=== PATIENT | female | born 1950 | race Caucasian/White ===

== ENCOUNTER → 2016-09-22 16:25 | Outpatient (CLI) | payer BC | END | disposition home or self-care (01) | LOC: D.MAMMO 10:30 | DX: R92.8 Other abnormal and inconclusive findings on diagnostic imaging of breast (principal) ==

== ENCOUNTER 2019-04-24 08:00 | Outpatient (CLI) | payer BC | END 2019-04-24 23:59 | disposition home or self-care (01) | LOC: D.MAMMO 08:00 | PROVIDERS: ATTEND Family Medicine | DX: Z12.31 Encounter for screening mammogram for malignant neoplasm of breast (principal) ==

== ENCOUNTER → 2020-02-21 21:16 | Outpatient (CLI) | payer BC | END | disposition home or self-care (01) | LOC: D.LABREF 21:16 | PROVIDERS: ATTEND Orthopaedic Surgery | DX: M17.0 Bilateral primary osteoarthritis of knee (principal) ==

== ENCOUNTER 2020-03-01 16:33 | Inpatient (IN) | payer BC, MEDICARE ==
[~2020-03-01] VITALS: Ht 162.6 cm; Wt 90.9 kg
[2020-03-13] MEDS ORDERED: WELCHOL625 MG PO (11:21)
[2020-03-13] MEDS ORDERED: MOBIC7.5 MG PO (11:21)
[2020-03-13] MEDS ORDERED: LISINOPRIL5 MG PO (11:22)
[2020-03-13] MEDS ORDERED: FUROSEMIDE20 MG PO (11:22)
[2020-03-13] MEDS ORDERED: MYSOLINE 50 MG50 MG PO (11:22)
[2020-03-13] MEDS ORDERED: VITAMIN B-12250 MC3 PO (11:23)
[2020-03-13] MEDS ORDERED: CENTRUM SILVER1 EAC3 PO (11:23)
[2020-03-13] MEDS ORDERED: ASCORBIC ACID500 MG PO (11:23)
[2020-03-13] MEDS ORDERED: COGNIUM PO (11:24)
[2020-03-13 11:56] LABS: APTT 29.2 SECONDS (22.8-39.4); INR 0.92 (0.85-1.17); PROTIME 12.4 SECONDS (11.6-15.0)
[2020-03-13 12:16] LABS: BILIRUBIN NEGATIVE (NEGATIVE); GLUCOSE NEGATIVE (NEGATIVE); KETONE NEGATIVE (NEGATIVE); NITRITE NEGATIVE (NEGATIVE); RED CELLS - URINE RARE /hpf (0-5); SPECIFIC GRAVITY 1.025 (1.005-1.020); UROBILINOGEN NORMAL (NORMAL); WHITE CELLS - URINE 0-5 /hpf (NEGATIVE)
[2020-03-13 12:17] LABS: BACTERIA FEW /hpf (NEGATIVE); EPITHELIAL CELLS 0-5 /hpf (0-5)
[2020-03-13 12:27] LABS: BASOPHILS 0.3 % (0-2); EOSINOPHILS 2.3 % (0-7); HEMOGLOBIN 12.7 g/dL (12-16); IMMATURE GRANULOCYTES 0.2 % (0-5); LYMPHOCYTES 38.5 % (15-50); MCH 31.3 pg (26.0-34.0); MCHC 33.4 g/dL (31.0-37.0); MCV 93.6 fL (80.0-100.0); MEAN PLATELET VOLUME 10.5 fL (7.4-10.4); MONOCYTES 8.6 % (2-11); NEUTROPHILS 50.1 % (40-80); PLATELET COUNT 237 10x3/uL (130-400); RBC 4.06 10x6/uL (4.00-5.40); RDW 13.1 % (11.5-14.5); WBC 5.7 10x3/uL (4.8-10.8)
[2020-03-13 13:03] LABS: CALCIUM 9.2 mg/dL (8.5-10.1); CARBON DIOXIDE 24.2 mmol/L (21.0-32.0)
[2020-03-13 13:44] LABS: ANION GAP 12.4 mmol/L (8-16); POTASSIUM - SERUM 4.6 mmol/L (3.5-5.1)
[2020-03-19] VITALS (7 sets, daily range): BP systolic 110–151; BP diastolic 52–76; Ht 162.6 cm; Wt 90.9 kg
[2020-03-19] MEDS ORDERED: CIPRO500 MG PO (12:58)
--- NOTE | 2020-03-19 14:59 | NUR ---
PLASMA BLADE AND AQUAMANIS USED. PLASMA BLADE SETTING 6/8. AQUAMANIS SETTING 170. CAUTERY PAD PLACED ON RIGHT THIGH. LOT#[id number] EXP. 06/07/2021
--- NOTE | 2020-03-19 14:59 | NUR ---
1445-MONITORS ESTABLISHED. SEDATION PER ANESTHESIA. BLOCK TO LEFT LEG PER ANESTHESIA.
[2020-03-20] VITALS: BP 109/58
[2020-03-20 04:30] VITALS: BP 93/47
[2020-03-20 06:28] LABS: HEMOGLOBIN 10.9 g/dL (12-16); MCH 31.3 pg (26.0-34.0); MCV 94.8 fL (80.0-100.0); MEAN PLATELET VOLUME 10.8 fL (7.4-10.4); RBC 3.48 10x6/uL (4.00-5.40); RDW 13.5 % (11.5-14.5); WBC 8.7 10x3/uL (4.8-10.8)
--- NOTE | 2020-03-20 06:29 | OP ---
PATIENT NAME: ESTER REARDON MEDICAL RECORD: [id number] :52 LOCATION:D. D.1211 ADMISSION DATE:03/19/20 SURGEON: ANTHONY NDIAYE DO DATE OF OPERATION: 03/19/2020 PROCEDURE PERFORMED: Left total knee arthroplasty. PREOPERATIVE DIAGNOSIS: Left knee osteoarthritis. POSTOPERATIVE DIAGNOSIS: Left knee osteoarthritis. INDICATIONS: Ms. Reardon is a 69-year-old female who has had continuing left and right knee pain. She has had x-rays in all manner of nonoperative treatment. She had an MRI in the left knee, which showed severe chondromalacia and full thickness, cartilage loss on the medial side of the knee and she came to see me. I informed her that there is not a whole lot we can do other than do a total knee since she already exhausted all the other options and then nothing is shown to regrow cartilage just yet. She was aware of that and aware of the risk of this including infection, bleeding, damage to nerves and vessels, need for further surgery, continued pain, arthrofibrosis, blood clots, even , failure of implants, and she signed a consent. SURGEON: Anthony Ndiaye DO DESCRIPTION OF THE PROCEDURE: The patient was taken to the operative suite, laid in supine position, given general anesthetic, and LMA was placed. She was given 2 grams of Ancef preoperatively and 80 mg of gentamicin. She was also given a gram of TXA. At that point, the left lower extremity was prepped and draped in sterile fashion. Timeout was performed. Everyone was agreeance with the correct site, side, the patient, and procedure and began to marking out the incision on the anterior knee and covered in Ioban and took a 10 blade scalpel and a careful dissection down to the capsule. Used a fresh 10 blade to medial parapatellar approach, everted the patella, took part of the fat pad out and milled down patella. I then took out the ACL and put a drill into the femoral canal and used the intramedullary guide for distal femur cut. Once the distal femur was cut, the proximal tibia was cut, and extramedullary guide and removed that, cut as well as menisci. Knee was brought to extension and then a lamina distillery manager was used to remove any further menisci over the left and coagulated any bleeding with the Aquamantys. We then put the 10 extension block and it fit well. We removed the pins and flexed the knee, upsized the femur to be a 65, 4-in-1 cutting block was put on. The veronica wing was used to ensure there was no notching. We then cut the distal femur through the 4-in-1 cutting block and removed the excess bone. I then put on the 65 trial and floated in the tibial tray and ranged it and marked the rotation. I then drilled the patellar holes and the lug holes in the femur, removed the trial, exposed the tibia and 71 tray fit very well. It was reamed and punched and extra holes put in the tibia for the cement. Cement was mixed. The area was irrigated and then dried out and then cement was put in the tibia and on the implant and impacted into place. Excess cement was removed. Then, I impacted the femur on and put a 12 poly in between and brought knee into extension and put the patella on and put after irrigating curetting out the holes and I then put cement in the holes and on the patella and put the squeezer on and then hold it into place, removed excess cement from it and the tibia. I then put in 10% povidone iodine and 500 mL of normal saline and let it sit for 3 minutes and irrigated the knee out with over a liter of normal saline. We then trialed the 12 and 14, the 14 fit best and OPERATIVE REPORT [id number] ESTER REARDON put in a 14-E poly and locked it into place. It ranged very well, had good range of motion and good stability in extension and flexion and then put in the Renate and vancomycin and tobramycin powder and closed the capsule with #1 pop-offs in zzskab-my-vbmjh fashion, done by myself and Ankush Balbuena, certified teacher assistant, and Melvin Win, certified teacher assistant. Wandy and Carrington closed the skin with 2-0 Vicryl in inverted interrupted fashion, 4-0 Monocryl and a ZipLine placed on the skin and she was then dressed with Adaptic, 4 x 4s, ABD, Webril, Gary wrap, taken to recovery in stable condition. Blood loss was approximately 200 mL. COMPLICATIONS: None. TRANSINT:[id number] Voice Confirmation ID: [id number] DOCUMENT ID: [id number] ANTHONY NDIAYE, DO at 0629 CC: [id number] DICTATION DATE: 03/19/20 1636 PRINCIPAL SCIENTIST: 03/20/20 0159 ADM IN [facility] [address] [place] [address]
[2020-03-20 07:57] VITALS: BP 91/46
--- NOTE | 2020-03-20 08:00 | NUR ---
PATIENT IN BED WITH IV INTACT. NO COMPLAINTS OR SIGNS OF DISTRESS. CALL LIGHT WITHIN REACH.
[2020-03-20 12:17] VITALS: BP 91/42
[2020-03-20 16:00] VITALS: BP 99/43
--- NOTE | 2020-03-20 17:15 | NUR ---
PATIENT FRIEND STATED THAT PATIENT IS WANTING PAIN MEDS AND THAT SHE HAD WANTED IT EARLIER WHEN THE DOCTOR WAS IN AND THE DOCTOR SAID TO GO AHEAD AND GET SOME AND SHE STILL HAS NOT RECIEVED ANY. EXPLAINED THAT I WAS NOT AWARE PATIENT WANTED PAIN MEDS BECAUSE I WAS NOT TOLD AND THAT THE PATIENT HAS BEEN SLEEPING WHILE SHE WAS GONE. SHE ALSO STATED THAT THE PATIENT SCD WAS ON BUT THE MACHINE WAS NOT TURNED ON BC DAVID HAD NOT TURNED IT ON AFTER PLACING THE PATIENTS NBA HOSE ON. EXPLAINED THAT I WAS NOT AWARE THE MACHINE WAS NOT ON BC THE PATIENT DID NOT PUSH HER CALL LIGHT AND TELL ME IT WASNT ON AND WHEN I WENT INTO HER ROOM LAST AT 1530 PATIENT WAS SLEEPING. SHE STATED PATIENT HAS NOT BEEN TO THE BR SINCE SHE WAS GONE AND THAT SHE DIDNT HAVE HER CPM ON. EXPLAINED TO FRIEND AGAIN THAT PATIENT HAS BEEN SLEEPING AND THAT SHE NEVER CALLED TO GO TO THE BR AND THAT SHE GETS HER CPM ON AFTER SUPPER. SHE STATED WHEN IS SUPPER SHE DOESNT HAVE A TRAY. WENT IN PATIENTS ROOM. TRAY AT . PATIENT IN BED STATED SHE IS HURTING. EXPLAINED I WOULD BRING HER A PAIN MED AT THIS TIME. VERBALIZED UNDERSTANDING. CALL LIGHT WITHIN REACH.
--- NOTE | 2020-03-20 17:30 | NUR ---
ASSISTED PATIENT TO BR AND THEN WALKED IN [place] TO NURSE'S STATION AND BACK. ASSISTED PATIENT BACK TO BED AND PLACED SCD ON RLE. ON AND WORKING. CPM PLACED ON LLE. NBA HOSE ON. IV INTACT. SALINE LOCKED. FRIEND AT BEDSIDE. CALL LIGHT WITHIN REACH. WILL CONTINUE TO MONITOR.
--- NOTE | 2020-03-20 18:33 | NUR ---
PATIENT STATED HER CPM IS HURTING THE BACK OF HER KNEE AND THIGH FROM STRETCHING AND PULLING. EXPLAINED TO PATIENT THAT SHE HAS HAD HER PAIN MED AND PLACED ICE PACKS ON BOTH AREAS. STATED TO TRY TO LEAVE IT ON LONG SHE COULD. VERBALIZED UNDERSTANDING. CALL LIGHT WITHIN REACH.
[2020-03-20 20:00] VITALS: BP 118/43
--- NOTE | 2020-03-20 20:00 | NUR ---
ALERT RESTING IN BED CPM IN USE, DENIES PAIN OR NEEDS AT THIS TIME, CALL LIGHT IN REACH
[2020-03-21 04:00] VITALS: BP 138/58
[2020-03-21 05:46] LABS: HEMATOCRIT 32.6 % (36.0-48.0); HEMOGLOBIN 10.6 g/dL (12-16); MCH 30.9 pg (26.0-34.0); MCHC 32.5 g/dL (31.0-37.0); MEAN PLATELET VOLUME 10.3 fL (7.4-10.4); RBC 3.43 10x6/uL (4.00-5.40); RDW 13.6 % (11.5-14.5); WBC 7.6 10x3/uL (4.8-10.8)
[2020-03-21 07:25] VITALS: BP 151/60
--- NOTE | 2020-03-21 10:00 | NUR ---
PATIENT UP TO CHAIR PER PT. WANTS TO GO BACK TO BED. EXPLAINED SHE NEEDS TO STAY UP FOR AT LEAST AN HOUR. VERBALIZED UNDERSTANDING. FRIEND AT BEDSIDE. CALL LIGHT WITHIN REACH.
--- NOTE | 2020-03-21 11:06 | NUR ---
PATIENT BATH AT THIS TIME. ASSISTED BY SNT. UP TO BR AND TO SINK FOR ORAL CARE. WANTS TO GO BACK TO BED. EXPLAINED TO STAY UP FOR LONGER BY ATTENDANCE SECRETARY. VERBALIZED UNDERSTANDING. FRIEND AT BEDSIDE. CALL LIGHT WITHIN REACH.
--- NOTE | 2020-03-21 11:07 | NUR ---
PATIENT BACK TO BED AT THIS TIME. DOES NOT WANT TO STAY UP. STATES SHE IS IN TOO MUCH PAIN. FRIEND AT BEDSIDE. CALL LIGHT WITHIN REACH. PT. TEDS AND SCDS ON AND WORKING.
[2020-03-21 12:05] VITALS: BP 140/45
--- NOTE | 2020-03-21 13:07 | MORECARE ---
CASE MANAGEMENT DISCHARGE SUMMARY PATIENT: ESTER REARDON UNIT: [id number] ADM DATE: 03/19/20 AGE: 69 : 51 SEX: F ROOM/BED: D.1211 AUTHOR: ZULMA WILSON PHYSICIAN: REFERRING PHYSICIAN: LUIZ NDIAYE DO DATE OF SERVICE: 03/21/20 Discharge Plan Patient Name: ESTER REARDON [facility] [facility] 1950 Planned Disposition: Home or Self Care Anticipated Discharge Date: Discharge Date: Expected LOS: Initial Reviewer: [email or web address] Initial Review Date: 03/19/2020 Generated: 03/21/20 2:06 pm DCPIA - Discharge Planning Initial Assessment Updated by [email or web address]: Courtney Horowitz on 03/21/20 1:05 pm * Is the patient Alert and Oriented? Yes * How many steps to enter\exit or inside your home? * PCP MARILY * Pharmacy [facility] [address] * Preadmission Environment Home Alone * ADLs Independent * Equipment Elevated Toliet Seat Rolling Walker Walker * Other Equipment CPM ICE MACHINE * List name and contact numbers for known caregivers / representatives who currently or will assist patient after discharge: ELYSE [place] [phone] * Verbal permission to speak to the caregivers and representatives has been obtained from the patient. N/A * Community resources currently utilized None * Additional services required to return to the preadmission environment? Yes * Can the patient safely return to the preadmission environment? Yes * Has this patient been hospitalized within the prior 30 days at any hospital? No Patient Name: ESTER REARDON Page [phone] at 1307 All edits/amendments must be made on the electronic document DICTATION DATE: 03/21/20 1307 GERM DRIER: GABY 03/21/20 1307 RPT#: [id number] DC DATE: STATUS: ADM IN [facility] [address] [place] [address] END OF REPORT
--- NOTE | 2020-03-21 13:14 | MORECARE ---
CASE MANAGEMENT DISCHARGE SUMMARY PATIENT: ESTER REARDON UNIT: [id number] ADM DATE: 03/19/20 AGE: 69 : 51 SEX: F ROOM/BED: D.1211 AUTHOR: KATIEDOC PHYSICIAN: REFERRING PHYSICIAN: LUIZ NDIAYE DO DATE OF SERVICE: 03/21/20 Discharge Plan Patient Name: ESTER REARDON Facility: [facility]:[place] : 1950 Planned Disposition: Home or Self Care Anticipated Discharge Date: Discharge Date: Expected LOS: Initial Reviewer: [email or web address] Initial Review Date: 03/19/2020 Generated: 03/21/20 2:14 pm Comments DCP- Discharge Planning Updated by [email or web address]: Courtney Horowitz on 03/21/20 12:[address] Patient Name: ESTER REARDON Admission Status: Elective Accout number: [id number] Admission Date: 03-19-2020 : 1950 Admission Diagnosis: Attending: LUIZ NDIAYE Current LOS: 2 Anticipated DC Date: Planned Disposition: Home or Self Care Primary Insurance: [employer] Discharge Planning Comments: late entry: 03/21/20 @ 0720 CM met with patient to complete initial dc planning assessment. CM educated patient on the CM role and verbal consent given by patient to complete assessment. Patient lives at home alone where she is independent with her care. At discharge patient plans to return home and feels this is a safe discharge. CM discussed availability of home health, rehab services, and medical equipment. Patient stated that she has friends and family who will help her. Patient has an ice machine, CPM, walker and a handicap commode. She plans on going to [facility] OP PT, I have made her appointment for WednesdayMarch 25 @ 1:45. The patient will get a copy of the order in her discharge packet. IMM served and explained. Patient denied known discharge needs at this time. CM will continue to follow and will assist as needed with dc plans/needs. Sales Incentive Analyst: Courtney Horowitz DCPIA - Discharge Planning Initial Assessment Updated by [email or web address]: Courtney Horowitz on 03/21/20 1:05 pm * Is the patient Alert and Oriented? Yes * How many steps to enter\exit or inside your home? * PCP MARILY * Pharmacy [facility] [address] * Preadmission Environment Home Alone * ADLs Independent * Equipment Elevated Tol[place] Seat Rolling Walker Walker * Other Equipment CPM ICE MACHINE * List name and contact numbers for known caregivers / representatives who currently or will assist patient after discharge: ELYSE SAWYER [phone] * Verbal permission to speak to the caregivers and representatives has been obtained from the patient. N/A * Community resources currently utilized None * Additional services required to return to the preadmission environment? Yes * Can the patient safely return to the preadmission environment? Yes * Has this patient been hospitalized within the prior 30 days at any hospital? No Coverage Notice Reviewer: [email or web address] Milena Horowitz Notice Issued Date-Time: 03/21/2020 7:20 Notice Type: IM Discharge Notice Notice Delivered To: Patient Relationship to Patient: Detention Attendant Name: Delivery Method: HAND - Hand Delivered Mary Jane Days: Prior Verbal Notification: Recipient Understood Notice: Yes Recipient Signature: Yes Med Rec Note Co-signed by Attending: Coverage Notice Comment: imm served and explained Last DP export: 03/21/20 12:07 pm Patient Name: ESTER REARDON Page [phone] at 1314 All edits/amendments must be made on the electronic document DICTATION DATE: 03/21/20 1314 STUDY ABROAD ADVISOR: GABY 03/21/20 1314 RPT#: [id number] DC DATE: STATUS: ADM IN [facility] [address] [place] [address] END OF REPORT
[2020-03-21 16:14] VITALS: BP 139/53
--- NOTE | 2020-03-21 17:00 | NUR ---
PATIENT AMBULATED IN [place] WITH RN TO FIRST SET OF DOUBLE DOORS FROM 1211. PATIENT HAD SMALL AMOUNT OF TROUBLE BECAUSE SHE IS TIRED AND WEAK. ASSISTED BACK TO ROOM AND BACK TO BED. DID NOT WANT TO SIT IN CHAIR NO LONGER. SAT IN CHAIR FOR AT LEAST 30 MIN. FRIEND AT BEDSIDE. CALL LIGHT WITHIN REACH.
--- NOTE | 2020-03-21 19:51 | NUR ---
ALERT RESTING IN BED, CPM IN USE, REPORTS PAIN BETTER TODAY DENIES PAIN OR NEEDS AT THIS TIME, SEE SHIFT ASSESSMENT, CALL LIGHT IN REACH
--- NOTE | 2020-03-21 19:52 | NUR ---
ALERT SITTING UP IN BED DENIES PAIN OR NEEDS AT THIS TIME, SEE SHIFT ASSESSMENT, CALL LIGHT IN REACH, AT BEDSIDE
[2020-03-21 20:30] VITALS: BP 148/62
[2020-03-22 05:38] VITALS: BP 142/64
[2020-03-22 06:03] LABS: BASOPHILS 0.1 % (0-2); EOSINOPHILS 3.2 % (0-7); HEMATOCRIT 32.4 % (36.0-48.0); HEMOGLOBIN 10.9 g/dL (12-16); IMMATURE GRANULOCYTES 0.1 % (0-5); LYMPHOCYTES 26.6 % (15-50); MCH 31.6 pg (26.0-34.0); MCHC 33.6 g/dL (31.0-37.0); MCV 93.9 fL (80.0-100.0); MEAN PLATELET VOLUME 10.4 fL (7.4-10.4); MONOCYTES 15.9 % (2-11); NEUTROPHILS 54.1 % (40-80); PLATELET COUNT 192 10x3/uL (130-400); RBC 3.45 10x6/uL (4.00-5.40); RDW 13.4 % (11.5-14.5); WBC 7.1 10x3/uL (4.8-10.8)
[2020-03-22 06:04] LABS: ANION GAP 11.2 mmol/L (8-16); BILIRUBIN - TOTAL 1.01 mg/dL (0.2-1.3); CALCIUM 8.6 mg/dL (8.5-10.1); CARBON DIOXIDE 25.8 mmol/L (21.0-32.0); CREATININE - SERUM 1.1 mg/dL (0.6-1.3); PROTEIN - SERUM 6.6 g/dL (6.4-8.2)
[2020-03-22 07:46] VITALS: BP 137/52
[2020-03-22] MEDS ORDERED: ELIQUIS2.5 MG PO (08:10)
[2020-03-22] MEDS ORDERED: oxyCODONE IR PO (08:11)
--- NOTE | 2020-03-22 10:30 | NUR ---
PATIENT DRESSING CHANGED AT THIS TIME. INCISION CLEAN AND DRY WITH NO REDNESS OR DRAINAGE. ZIP LINE INTACT. MEPILEX APPLIED AND WRAPPED WITH SAIRA. PATIENT TOLERATED WITH NO PAIN. CALL LIGHT WITHIN REACH.
--- NOTE | 2020-03-22 13:13 | MORECARE ---
CASE MANAGEMENT DISCHARGE SUMMARY PATIENT: ESTER REARDON UNIT: [id number] ADM DATE: 03/19/20 AGE: 69 : 51 SEX: F ROOM/BED: D.1211 AUTHOR: ZULMA WILSON PHYSICIAN: REFERRING PHYSICIAN: LUIZ NDIAYE DO DATE OF SERVICE: 03/22/20 Discharge Plan Patient Name: ESTER REARDON Facility: [facility]:[place] : 1950 Planned Disposition: Home or Self Care Anticipated Discharge Date: Discharge Date: Expected LOS: Initial Reviewer: [email or web address] Initial Review Date: 03/19/2020 Generated: 03/22/20 2:12 pm Comments DCP- Discharge Planning Updated by [email or web address]: Courtney Horowitz on 03/22/20 12:[address] SPOKE WITH PATIENT & FRIEND AT LENGTH ABOUT GOING HOME, THEY ARE WORRIED THAT SHE WILL NOT BE ABLE TO MAKE IT. PT AND MD STATES SHE IS SAFE FOR DC WITH HOME HEALTH. SHE WOULD BE INTRESTED TO GO TO INPATIENT REHAB I HAVE PUT A REFERRAL IN FOR INPATIENT REHAB DCP- Discharge Planning Updated by [email or web address]: Courtney Horowitz on 03/21/20 12:[address] Patient Name: ESTER REARDON Admission Status: Elective Accout number: [id number] Admission Date: 03-19-2020 : 1950 Admission Diagnosis: Attending: LUIZ NDIAYE Current LOS: 2 Anticipated DC Date: Planned Disposition: Home or Self Care Primary Insurance: [employer] [facility] Discharge Planning Comments: late entry: 03/21/20 @ 07 CM met with patient to complete initial dc planning assessment. CM educated patient on the CM role and verbal consent given by patient to complete assessment. Patient lives at home alone where she is independent with her care. At discharge patient plans to return home and feels this is a safe discharge. CM discussed availability of home health, rehab services, and medical equipment. Patient stated that she has friends and family who will help her. Patient has an ice machine, CPM, walker and a handicap commode. She plans on going to [facility] OP PT, I have made her appointment for WednesdayMarch 25 @ 1:45. The patient will get a copy of the order in her discharge packet. IMM served and explained. Patient denied known discharge needs at this time. CM will continue to follow and will assist as needed with dc plans/needs. Industrial Sweeper Cleaner: Courtney Horowitz DCPIA - Discharge Planning Initial Assessment Updated by [id number]: Courtney Horowitz on 03/21/20 1:05 pm * Is the patient Alert and Oriented? Yes * How many steps to enter\exit or inside your home? * PCP [facility] * Pharmacy [facility] [address] * Preadmission Environment Home Alone * ADLs Independent * Equipment Elevated Tol[place] Seat Rolling Walker Walker * Other Equipment CPM ICE MACHINE * List name and contact numbers for known caregivers / representatives who currently or will assist patient after discharge: ELYSE SAWYER [phone] * Verbal permission to speak to the caregivers and representatives has been obtained from the patient. N/A * Community resources currently utilized None * Additional services required to return to the preadmission environment? Yes * Can the patient safely return to the preadmission environment? Yes * Has this patient been hospitalized within the prior 30 days at any hospital? No Coverage Notice Reviewer: [id number] - Courtney Horowitz Notice Issued Date-Time: 03/21/2020 7:20 Notice Type: IM Discharge Notice Notice Delivered To: Patient Relationship to Patient: Assistant Prosecuting Attorney Name: Delivery Method: HAND - Hand Delivered Mary Jane Days: Prior Verbal Notification: Recipient Understood Notice: Yes Recipient Signature: Yes Med Rec Note Co-signed by Attending: Coverage Notice Comment: imm served and explained Last DP export: 03/21/20 12:14 pm Patient Name: ESTER REARDON Page [phone] at 1313 All edits/amendments must be made on the electronic document DICTATION DATE: 03/22/20 1312 PROPERTY MANAGEMENT INTERN: GABY 03/22/20 1312 RPT#: [id number] DC DATE: STATUS: ADM IN [facility] [address] [place] [address] END OF REPORT
--- NOTE | 2020-03-22 14:05 | MORECARE ---
CASE MANAGEMENT DISCHARGE SUMMARY PATIENT: ESTER REARDON UNIT: [id number] ADM DATE: 03/19/20 AGE: 69 : 51 SEX: F ROOM/BED: D.1211 AUTHOR: ZULMA WILSON PHYSICIAN: REFERRING PHYSICIAN: LUIZ NDIAYE DO DATE OF SERVICE: 03/22/20 Discharge Plan Patient Name: ESTER REARDON Facility: [facility]:[place] : 1950 Planned Disposition: Home or Self Care Anticipated Discharge Date: Discharge Date: Expected LOS: Initial Reviewer: [email or web address] Initial Review Date: 03/19/2020 Generated: 03/22/20 3:04 pm Comments DCP- Discharge Planning Updated by [email or web address]: Courtney Horowitz on 03/22/20 12:[address] SPOKE WITH PATIENT & FRIEND AT LENGTH ABOUT GOING HOME, THEY ARE WORRIED THAT SHE WILL NOT BE ABLE TO MAKE IT. PT AND MD STATES SHE IS SAFE FOR DC WITH HOME HEALTH. SHE WOULD BE INTRESTED TO GO TO INPATIENT REHAB I HAVE PUT A REFERRAL IN FOR INPATIENT REHAB DCP- Discharge Planning Updated by [email or web address]: Courtney Horowitz on 03/21/20 12:[address] Patient Name: ESTER REARDON Admission Status: Elective Accout number: [id number] Admission Date: 03-19-2020 : 1950 Admission Diagnosis: Attending: LUIZ NDIAYE Current LOS: 2 Anticipated DC Date: Planned Disposition: Home or Self Care Primary Insurance: [facility] Discharge Planning Comments: late entry: 03/21/20 @ 07 CM met with patient to complete initial dc planning assessment. CM educated patient on the CM role and verbal consent given by patient to complete assessment. Patient lives at home alone where she is independent with her care. At discharge patient plans to return home and feels this is a safe discharge. CM discussed availability of home health, rehab services, and medical equipment. Patient stated that she has friends and family who will help her. Patient has an ice machine, CPM, walker and a handicap commode. She plans on going to [facility] OP PT, I have made her appointment for WednesdayMarch 25 @ 1:45. The patient will get a copy of the order in her discharge packet. IMM served and explained. Patient denied known discharge needs at this time. CM will continue to follow and will assist as needed with dc plans/needs. Elementary Reading Tutor: Courtney Horowitz DCPIA - Discharge Planning Initial Assessment Updated by [email or web address]: Courtney Horowitz on 03/21/20 1:05 pm * Is the patient Alert and Oriented? Yes * How many steps to enter\exit or inside your home? * PCP [facility] * Pharmacy [facility] [address] * Preadmission Environment Home Alone * ADLs Independent * Equipment Elevated Toliet Seat Rolling Walker Walker * Other Equipment CPM ICE MACHINE * List name and contact numbers for known caregivers / representatives who currently or will assist patient after discharge: ELYSE SAWYER [phone] * Verbal permission to speak to the caregivers and representatives has been obtained from the patient. N/A * Community resources currently utilized None * Additional services required to return to the preadmission environment? Yes * Can the patient safely return to the preadmission environment? Yes * Has this patient been hospitalized within the prior 30 days at any hospital? No Coverage Notice Reviewer: [id number] - Courtney Horowitz Notice Issued Date-Time: 03/21/2020 7:20 Notice Type: IM Discharge Notice Notice Delivered To: Patient Relationship to Patient: Premix Concrete Batcher Name: Delivery Method: HAND - Hand Delivered Mary Jane Days: Prior Verbal Notification: Recipient Understood Notice: Yes Recipient Signature: Yes Med Rec Note Co-signed by Attending: Coverage Notice Comment: imm served and explained Last DP export: 03/22/20 12:13 p Patient Name: ESTER REARDON Page [phone] at 1405 All edits/amendments must be made on the electronic document DICTATION DATE: 03/22/20 140 MERCHANT POLICE: GABY 03/22/20 140 RPT#: [id number] DC DATE: STATUS: ADM IN [facility] [address] [place] [address] END OF REPORT
--- NOTE | 2020-03-22 14:13 | MORECARE ---
CASE MANAGEMENT DISCHARGE SUMMARY PATIENT: ESTER REARDON UNIT: [id number] ADM DATE: 03/19/20 AGE: 69 : 51 SEX: F ROOM/BED: D.1211 AUTHOR: KAITE,DOC PHYSICIAN: REFERRING PHYSICIAN: LUIZ NDIAYE DO DATE OF SERVICE: 03/22/20 Discharge Plan Patient Name: ESTER REARDON Facility: [facility]:[place] : 1950 Planned Disposition: Home or Self Care Anticipated Discharge Date: Discharge Date: Expected LOS: Initial Reviewer: [email or web address] Initial Review Date: 03/19/2020 Generated: 03/22/20 3:12 pm Comments DCP- Discharge Planning Updated by [email or web address]: Courtney Horowitz on 03/22/20 1:[address] [facility] WITH INPATIENT REHAB STATES THAT SHE DOES NOT QUALIFY FOR INPATIENT REHAB DCP- Discharge Planning Updated by [email or web address]: Courtney Horowitz on 03/22/20 1:[address] PATIENT WILL BE DISCHARGING HOME WITH [employer] [facility] I HAVE SPOKEN WITH RAY AT [employer] [facility] AND THEY CAN START CARE ON WEDNESDAY DCP- Discharge Planning Updated by [email or web address]: Courtney Horowitz on 03/22/20 12:[address] SPOKE WITH PATIENT & FRIEND AT LENGTH ABOUT GOING HOME, THEY ARE WORRIED THAT SHE WILL NOT BE ABLE TO MAKE IT. PT AND MD STATES SHE IS SAFE FOR DC WITH HOME HEALTH. SHE WOULD BE INTRESTED TO GO TO INPATIENT REHAB I HAVE PUT A REFERRAL IN FOR INPATIENT REHAB DCP- Discharge Planning Updated by [email or web address]: Courtney Horowitz on 03/21/20 12:[address] Patient Name: ESTER REARDON Admission Status: Elective Accout number: [id number] Admission Date: 03-19-2020 : 1950 Admission Diagnosis: Attending: LUIZ NDIAYE Current LOS: 2 Anticipated DC Date: Planned Disposition: Home or Self Care Primary Insurance: [employer] O Discharge Planning Comments: late entry: 03/21/20 @ 0720 CM met with patient to complete initial dc planning assessment. CM educated patient on the CM role and verbal consent given by patient to complete assessment. Patient lives at home alone where she is independent with her care. At discharge patient plans to return home and feels this is a safe discharge. CM discussed availability of home health, rehab services, and medical equipment. Patient stated that she has friends and family who will help her. Patient has an ice machine, CPM, walker and a handicap commode. She plans on going to [facility] PT, I have made her appointment for WednesdayMarch 25 @ 1:45. The patient will get a copy of the order in her discharge packet. IMM served and explained. Patient denied known discharge needs at this time. CM will continue to follow and will assist as needed with dc plans/needs. Scooper: Courtney Horowitz DCPIA - Discharge Planning Initial Assessment Updated by [email or web address]: Courtney Horowitz on 03/21/20 1:05 pm * Is the patient Alert and Oriented? Yes * How many steps to enter\exit or inside your home? * PCP [facility] * Pharmacy [facility] [address] * Preadmission Environment Home Alone * ADLs Independent * Equipment Elevated [place] Seat Rolling Walker Walker * Other Equipment CPM ICE MACHINE * List name and contact numbers for known caregivers / representatives who currently or will assist patient after discharge: ELYSE SAWYER [phone] * Verbal permission to speak to the caregivers and representatives has been obtained from the patient. N/A * Community resources currently utilized None * Additional services required to return to the preadmission environment? Yes * Can the patient safely return to the preadmission environment? Yes * Has this patient been hospitalized within the prior 30 days at any hospital? No Coverage Notice Reviewer: [id number] - Courtney Horowitz Notice Issued Date-Time: 03/21/2020 7:20 Notice Type: IM Discharge Notice Notice Delivered To: Patient Relationship to Patient: Conductor Sleeping Car Name: Delivery Method: HAND - Hand Delivered Mary Jane Days: Prior Verbal Notification: Recipient Understood Notice: Yes Recipient Signature: Yes Med Rec Note Co-signed by Attending: Coverage Notice Comment: imm served and explained Last DP export: 03/22/20 1:05 p Patient Name: ESTER REARDON Page [id number] at 1413 All edits/amendments must be made on the electronic document DICTATION DATE: 03/22/20 1412 NURSE CLINICIAN: GABY 03/22/20 1412 RPT#: [id number] DC DATE: STATUS: ADM IN [facility] [address] [place] [address] END OF REPORT
--- NOTE | 2020-03-22 14:39 | NUR ---
PATIENT CLEANED UP AND DRESSED AT THIS TIME. RECIEVED DC INSTRUCTIONS. VERBALIZED UNDERSTANDING. NO QUESTIONS AT THIS TIME. PRESCRIPTIONS GIVEN TO PATIENT FRIEND. WAITING FOR TRANSPORTATION FOR DC.
--- NOTE | 2020-03-22 14:43 | NUR ---
Rehab Note- Acute Inpatient prescreen order recieved. The patient has BC insurance would require a PreAuth and will need an OT Eval for PReAuth process. The patient is ambulating 100ft and doing well with PT. Discussed with WING Garrido about home with home health at this time. Thank you for this referral! Radha Ny RN Clinical Liaison, [facility] Rehab
--- NOTE | 2020-03-22 14:43 | MORECARE ---
CASE MANAGEMENT DISCHARGE SUMMARY PATIENT: ESTER REARDON UNIT: [id number] ADM DATE: 03/19/20 AGE: 69 : 51 SEX: F ROOM/BED: D.1211 AUTHOR: KATIE,DOC PHYSICIAN: REFERRING PHYSICIAN: LUIZ NDIAYE DO DATE OF SERVICE: 03/22/20 Discharge Plan Patient Name: ESTER REARDON Facility: [facility]:[place] : 1950 Planned Disposition: Home or Self Care Anticipated Discharge Date: Discharge Date: Expected LOS: Initial Reviewer: [email or web address] Initial Review Date: 03/19/2020 Generated: 03/22/20 3:42 pm Comments DCP- Discharge Planning Updated by [email or web address]: Courtney Horowitz on 03/22/20 1:[address] [facility] WITH INPATIENT REHAB STATES THAT SHE DOES NOT QUALIFY FOR INPATIENT REHAB DCP- Discharge Planning Updated by [email or web address]: Courtney Horowitz on 03/22/20 1:[address] PATIENT WILL BE DISCHARGING HOME WITH [facility] I HAVE SPOKEN WITH RAY AT [facility] AND THEY CAN START CARE ON WEDNESDAY DCP- Discharge Planning Updated by [email or web address]: Courtney Horowitz on 03/22/20 12:[address] SPOKE WITH PATIENT & FRIEND AT LENGTH ABOUT GOING HOME, THEY ARE WORRIED THAT SHE WILL NOT BE ABLE TO MAKE IT. PT AND MD STATES SHE IS SAFE FOR DC WITH HOME HEALTH. SHE WOULD BE INTRESTED TO GO TO INPATIENT REHAB I HAVE PUT A REFERRAL IN FOR INPATIENT REHAB DCP- Discharge Planning Updated by [email or web address]: Courtney Horowitz on 03/21/20 12:[address] Patient Name: ESTER REARDON Admission Status: Elective Accout number: [id number] Admission Date: 03-19-2020 : 1950 Admission Diagnosis: Attending: LUIZ NDIAYE Current LOS: 2 Anticipated DC Date: Planned Disposition: Home or Self Care Primary Insurance: [employer] O Discharge Planning Comments: late entry: 03/21/20 @ 0720 CM met with patient to complete initial dc planning assessment. CM educated patient on the CM role and verbal consent given by patient to complete assessment. Patient lives at home alone where she is independent with her care. At discharge patient plans to return home and feels this is a safe discharge. CM discussed availability of home health, rehab services, and medical equipment. Patient stated that she has friends and family who will help her. Patient has an ice machine, CPM, walker and a handicap commode. She plans on going to [facility] OP PT, I have made her appointment for WednesdayMarch 25 @ 1:45. The patient will get a copy of the order in her discharge packet. IMM served and explained. Patient denied known discharge needs at this time. CM will continue to follow and will assist as needed with dc plans/needs. Intern Brand: Courtney Horowitz DCPIA - Discharge Planning Initial Assessment Updated by [email or web address]: Courtney Horowitz on 03/21/20 1:05 pm * Is the patient Alert and Oriented? Yes * How many steps to enter\exit or inside your home? * PCP [facility] * Pharmacy [facility] [address] * Preadmission Environment Home Alone * ADLs Independent * Equipment Elevated [place] Seat Rolling Walker Walker * Other Equipment CPM ICE MACHINE * List name and contact numbers for known caregivers / representatives who currently or will assist patient after discharge: ELYSE SAWYER [phone] * Verbal permission to speak to the caregivers and representatives has been obtained from the patient. N/A * Community resources currently utilized None * Additional services required to return to the preadmission environment? Yes * Can the patient safely return to the preadmission environment? Yes * Has this patient been hospitalized within the prior 30 days at any hospital? No External Providers External Provider: [facility] Next Contact Date: Service Request Date: Service Type: Resolution: Reviewer: Comments: Coverage Notice Reviewer: [email or web address] - Courtney Horowitz Notice Issued Date-Time: 03/21/2020 7:20 Notice Type: IM Discharge Notice Notice Delivered To: Patient Relationship to Patient: Chain Dyer Name: Delivery Method: HAND - Hand Delivered Mary Jane Days: Prior Verbal Notification: Recipient Understood Notice: Yes Recipient Signature: Yes Med Rec Note Co-signed by Attending: Coverage Notice Comment: imm served and explained Last DP export: 03/22/20 1:12 p Patient Name: ESTER REARDON Page [id number] at 1443 All edits/amendments must be made on the electronic document DICTATION DATE: 03/22/201441 HOT STICK WORKER: GABY 03/22/201441 RPT#: [id number] DC DATE: STATUS: ADM IN [facility] [address] [place] [address] END OF REPORT
--- NOTE | 2020-03-22 15:14 | NUR ---
ESCORTED PATIENT VIA WC WITH PERSONAL BELONGINGS AND WALKER TO PRIVATE VEHICLE WITH PERSONAL BELONGINGS.
--- NOTE | 2020-03-22 16:22 | MORECARE ---
CASE MANAGEMENT DISCHARGE SUMMARY PATIENT: ESTER REARDON UNIT: [id number] ADM DATE: 03/19/20 AGE: 69 : 51 SEX: F ROOM/BED: D.1211 AUTHOR: ZULMA WILSON PHYSICIAN: REFERRING PHYSICIAN: LUIZ NDIAYE DO DATE OF SERVICE: 03/22/20 Discharge Plan Patient Name: ESTER REARDON Facility: [facility]:[place] : 1950 Planned Disposition: Home or Self Care Anticipated Discharge Date: Discharge Date: 03/22/2020 Expected LOS: Initial Reviewer: [email or web address] Initial Review Date: 03/19/2020 Generated: 03/22/20 5:21 pm Comments DCP- Discharge Planning Updated by [email or web address]: Courtney Horowitz on 03/22/20 1:[address] [facility] WITH INPATIENT REHAB STATES THAT SHE DOES NOT QUALIFY FOR INPATIENT REHAB DCP- Discharge Planning Updated by [email or web address]: Courtney Horowitz on 03/22/20 1:[address] PATIENT WILL BE DISCHARGING HOME WITH [facility] I HAVE SPOKEN WITH RAY AT [facility] AND THEY CAN START CARE ON WEDNESDAY DCP- Discharge Planning Updated by [email or web address]: Courtney Horowitz on 03/22/20 12:[address] SPOKE WITH PATIENT & FRIEND AT LENGTH ABOUT GOING HOME, THEY ARE WORRIED THAT SHE WILL NOT BE ABLE TO MAKE IT. PT AND MD STATES SHE IS SAFE FOR DC WITH HOME HEALTH. SHE WOULD BE INTRESTED TO GO TO INPATIENT REHAB I HAVE PUT A REFERRAL IN FOR INPATIENT REHAB DCP- Discharge Planning Updated by [email or web address]: Courtney Horowitz on 03/21/20 12:[address] Patient Name: ESTER REARDON Admission Status: Elective Accout number: [id number] Admission Date: 03-19-2020 : 1950 Admission Diagnosis: Attending: LUIZ NDIAYE Current LOS: 2 Anticipated DC Date: Planned Disposition: Home or Self Care Primary Insurance: [employer] O Discharge Planning Comments: late entry: 03/21/20 @ 0720 CM met with patient to complete initial dc planning assessment. CM educated patient on the CM role and verbal consent given by patient to complete assessment. Patient lives at home alone where she is independent with her care. At discharge patient plans to return home and feels this is a safe discharge. CM discussed availability of home health, rehab services, and medical equipment. Patient stated that she has friends and family who will help her. Patient has an ice machine, CPM, walker and a handicap commode. She plans on going to [facility] OP PT, I have made her appointment for WednesdayMarch 25 @ 1:45. The patient will get a copy of the order in her discharge packet. IMM served and explained. Patient denied known discharge needs at this time. CM will continue to follow and will assist as needed with dc plans/needs. Finance Associate: Courtney Horowitz DCPIA - Discharge Planning Initial Assessment Updated by [email or web address]: Courtney Horowitz on 03/21/20 1:05 pm * Is the patient Alert and Oriented? Yes * How many steps to enter\exit or inside your home? * PCP [facility] * Pharmacy [facility] [address] * Preadmission Environment Home Alone * ADLs Independent * Equipment Elevated [place] Seat Rolling Walker Walker * Other Equipment CPM ICE MACHINE * List name and contact numbers for known caregivers / representatives who currently or will assist patient after discharge: ELYSE SAWYER [phone] * Verbal permission to speak to the caregivers and representatives has been obtained from the patient. N/A * Community resources currently utilized None * Additional services required to return to the preadmission environment? Yes * Can the patient safely return to the preadmission environment? Yes * Has this patient been hospitalized within the prior 30 days at any hospital? No Coverage Notice Reviewer: [email or web address] - Courtney Horowitz Notice Issued Date-Time: 03/21/2020 7:20 Notice Type: IM Discharge Notice Notice Delivered To: Patient Relationship to Patient: Restaurant Area Manager Name: Delivery Method: HAND - Hand Delivered Mary Jane Days: Prior Verbal Notification: Recipient Understood Notice: Yes Recipient Signature: Yes Med Rec Note Co-signed by Attending: Coverage Notice Comment: imm served and explained Last DP export: 03/22/20 1:43 p Patient Name: ESTER REARDON Page [id number] at 1622 All edits/amendments must be made on the electronic document DICTATION DATE: 07/10/20 1622 DRAIN CLEANER: GABY 03/22/201621 RPT#: [id number] DC DATE:03/22/20 STATUS: DIS IN [facility] [address] [place] [address] END OF REPORT
== END 2020-03-22 15:14 | disposition home health service (06) | DRG 470 ==
LOC: D.SDCHOLD 03-19 10:00 → D.M3 03-19 12:25 → D.SDCHOLD 03-19 12:25 → D.M3 03-19 17:40
PROVIDERS: Family Medicine Adult Medicine; ADMIT Orthopaedic Surgery; ATTEND Orthopaedic Surgery
PROC: 0SRD0J9 Replacement of Left Knee Joint with Synthetic Substitute, Cemented, Open Approach (ICD-10-PCS; principal; 2020-03-19 15:00)
DX: M17.12 Unilateral primary osteoarthritis, left knee (principal); I10 Essential (primary) hypertension; R25.1 Tremor, unspecified

== ENCOUNTER → 2020-07-01 10:10 | Outpatient (CLI) | payer BC, MEDICARE ==
[2020-03-19 18:19] VITALS: BMI 34.4
[~2020-07-01 10:10] MED LIST: ASCORBIC ACID500 MG PO; CENTRUM SILVER1 EAC3 PO; CIPRO500 MG PO; COGNIUM PO; ELIQUIS2.5 MG PO; FUROSEMIDE20 MG PO; LISINOPRIL5 MG PO; MOBIC7.5 MG PO; MYSOLINE 50 MG50 MG PO; VITAMIN B-12250 MC3 PO; WELCHOL625 MG PO; oxyCODONE IR PO
== END | disposition home or self-care (01) ==
LOC: D.LABREF 10:10
PROVIDERS: ATTEND Nurse Practitioner
DX: R19.5 Other fecal abnormalities (principal)